=== PATIENT | male | born 1990 | race Caucasian/White ===

== ENCOUNTER 2016-10-29 13:10 | Emergency (ER) | payer BC ==
[2016-10-29] MEDS ORDERED: DIPHTH,PERTUSS(ACELL),TET VAC 0.5 ML VIAL IM ONE ×2 (13:24→13:32)
[2016-10-29] MEDS ORDERED: LIDOCAINE HCL 20 ML VIAL ONE (13:31)
--- NOTE | 2016-10-29 13:47 | ERNOTE ---
Medical Problem HPI - Narrative Date of Service: 10/29/16 - General Chief Complaint: Laceration Time Seen by Provider: 10/29/16 13:20 Source: patient Exam Limitations: no limitations - Immun/Allergies/Home Medications Immunizations: IMMUNIZATION HX Immunizations Up to Date No History of Influenza Vaccine No Hx Pneumococcal Vaccination No Allergies/Adverse Reactions: Allergies No Known Allergies Allergy (Verified 10/29/16 13:18) Home Medications: HOME MEDICATIONS NK [No Home Medication] 10/29/16 [Last Taken Unknown] - History of Present History Timing: constant Modifying Factors - (Improves): Present: other - nothing Modifying Factors - (Worsens): Present: other - nothing Review of Systems - Review of Systems Constitutional: Present: no symptoms reported EYE: Present: no symptoms reported ENT: Present: no symptoms reported Respiratory: Present: no symptoms reported Cardiology: Present: no symptoms reported Gastrointestinal/Abdominal: Present: no symptoms reported Genitourinary: Present: no symptoms reported Musculoskeletal: Present: no symptoms reported Neurological: Present: other - 1 cm laceration to tip of right index finger Endocrine: Present: no symptoms reported Hematologic/Lymphatic: Present: no symptoms reported Psych: Present: no symptoms reported All Other Systems: All systems neg except as marked - Patient's Past Medical History Patient History - Medical: No pertinent hx Patient History - Cardiac/Respiratory: No pertinent hx Patient History - Cancer: No Hx of Cancer Patient History - Surgical Procedures: No surgical history Patient History - Other: None - Social History Living Situations: home Abuse History: No History of abuse Psych History: No pertinent hx Smoking Status: Current every day smoker Have you smoked in the past 12 months: Yes Do you dip or chew tobacco: No Patient requests Smoking Cessation Consult: No Alcohol Use: occasionally Drug Use: none - Immunizations Immunizations Up to Date: No Hx Pneumococcal Vaccination: No History of Influenza Vaccine: No Physical Exam - Physical Exam General Appearance: Present: mild distress, anxious Head Exam: Present: normal inspection Eye Exam: Normal inspection: bilateral, PERRL: bilateral, EOMI: bilateral Ears, Nose, Throat: Present: normal ENT inspection Neck: Present: normal inspection, nontender Respiratory: Present: no respiratory distress, normal breath sounds, no accessory muscle use, chest nontender, lungs clear Cardiovascular/Chest: Present: regular rate, rhythm, no murmur, normal peripheral pulses Peripheral Pulses: N=norm/S=strong/W=weak/B=bound/A=absent: Carotid (R): Normal , Carotid (L): Normal, Radial (R): Normal, Radial (L): Normal, Femoral (R): Normal Gastrointestinal/Abdominal: Present: normal bowel sounds, nontender, nondistended, soft, no organomegaly Rectal Exam: Present: nontender, normal rectal tone Back Exam: Present: normal inspection, normal range of motion, no CVA tenderness , no vertebral tenderness Extremity Exam: Present: other - one cm laceration to tip of right index finger Neurological Exam: Present: alert, oriented, normal mood/affect, no motor/ sensory deficits DTR: N=norm/NB=norm/brisk/A=abs/DD=dull/dimin/HC=hyperactive: Bicep (R): Normal , Bicep (L): Normal, Tricep (R): Normal, Tricep (L): Normal, Knee (R): Normal, Knee (L): Normal Skin Exam: Present: normal color, warm/dry Lymphatic Exam: Present: no adenopathy ED Progress - Vital Signs Vital Signs: Vital Signs 10/29/16 13:14 Temperature 36.5 C Pulse Rate 75 Respiratory 18 Rate O2 Sat by Pulse 98 Oximetry - Progress/Reassessment Chief Complaint: Laceration Procedures Finger 1st Digit Anesthesia: 1% Lidocaine I & D Prep: betadine prep Length of Repair/Wound (cm): 1 Wound's Depth/Shape: linear Wound Explored: clean Wound Intervention: irrigated w/saline Foreign body identified: other - none Distal NVT: neuro/vasc intact Suture Size/Type: 4-0 Number of Sutures: 3 Layer Closure: Simple Wound Dressing: sterile dressing applied Complications: Pt micha procedure well Departure - Departure Clinical Impression: Laceration of finger Disposition: Home self-care Condition: Good Instructions: Laceration Care, Adult, [id number]
[2016-10-29 14:03] VITALS: BP 139/82
== END 2016-10-29 13:55 | disposition home or self-care (01) ==
LOC: ER 13:10
PROC: 0HQFXZZ Repair Right Hand Skin, External Approach (ICD-10-PCS; principal; 2016-10-29)
DX: S61.210A Laceration without foreign body of right index finger without damage to nail, initial encounter (principal); F17.200 Nicotine dependence, unspecified, uncomplicated; Z23 Encounter for immunization